=== PATIENT | female | born 2000 | race African-American/Black ===

== ENCOUNTER 2019-04-05 07:06 | Emergency (ER) | payer OTHER ==
[~2019-04-05] VITALS: Ht 167.6 cm; Wt 67.1 kg
[2019-04-05 07:11] VITALS: BP 129/87; Ht 167.6 cm; Wt 67.1 kg
== END 2019-04-05 10:23 | disposition home or self-care (01) ==
LOC: ED 07:06
DX: J40 Bronchitis, not specified as acute or chronic (principal); I10 Essential (primary) hypertension
CPT/HCPCS: Q0092